=== PATIENT | female | born 1945 | race Caucasian/White ===

== ENCOUNTER 2017-09-07 15:32 | Emergency (ER) | payer OTHER, MEDICARE ==
[2017-09-07 15:42] VITALS: BP 172/76; PULSE 87; TEMP 97.2; BMI 28.1
--- NOTE | 2017-09-07 16:32 | PDOC ---
History of Present Illness - General Chief Complaint: Rash Stated Complaint: EMPLOYEE, ALLERGIC REACTION Time Seen by Provider: 09/07/17 15:57 - History of Present Illness Initial Comments: CHIEF COMPLAINT: adverse reaction to medication HISTORY OF PRESENT ILLNESS: 71 yo F with hx of bipolar disease presents to [facility] with "itching." Patient reports that approximately one month ago, her psychiatrist decreased her Wellbutrin from 450 mg to 150 mg and discontinued her Depakote, then prescribed Lamictal 25 mg. She states that at that time she did not "feel right", and then two weeks ago he increased her dosage to 50 mg bid. Since then she has had intolerable itching and has been scratching herself uncontrollably. PAST MEDICAL HISTORY: Denies past medical history FAMILY HISTORY: Denies SOCIAL HISTORY: Denies tobacco, alcohol, illicit drug use. SURGICAL HISTORY: Denies ALLERGIES: bee, crab REVIEW OF SYSTEMS General/Constitutional: Denies fever or chills. Denies weakness, weight change. HEENT: Denies change in vision. Denies ear pain or discharge. Denies sore throat. Cardiovascular: Denies chest pain or shortness of breath. Respiratory: Denies cough, wheezing, or hemoptysis. Gastrointestinal: Denies nausea, vomiting, diarrhea or constipation. Denies rectal bleeding. Genitourinary: Denies dysuria, frequency, or change in urination. Musculoskeletal: Denies joint or muscle swelling or pain. Denies neck or back pain. Skin: severe itching PHYSICAL EXAM General Appearance: Well-appearing, appropriately dressed. No apparent distress , no intoxication. HEENT: Mucus membranes intact. EOMI, PERRLA, normal ENT inspection, normal voice , TMs normal, pharynx normal. No conjunctival pallor. No photophobia, scleral icterus. Neck: Supple. Trachea midline. No tenderness, rigidity, carotid bruit, stridor , lymphadenopathy, or thyromegaly. Respiratory/Chest: Lungs CTAB. No shortness of breath, chest tenderness, respiratory distress, accessory muscle use. No crackles, rales, rhonchi, stridor , wheezing, dullness Cardiovascular: RRR. S1, S2. No JVD, murmur, bradycardia, tachycardia. Vascular Pulses: Dorsalis-Pedis (R): 2+, Dorsalis-Pedis (L): 2+ Gastrointestinal/Abdominal: Normal bowel sounds. Abdomen soft, non-distended. No tenderness or rebound tenderness. No organomegaly, pulsatile mass, guarding , hernia, hepatomegaly, splenomegaly. Lymphatic: No adenopathy, tenderness. Musculoskeletal/Extremities: Normal inspection. FROM of all extremities, normal capillary refill. Pelvis Stable. No CVA tenderness. No tenderness to extremities, pedal edema, swelling, erythema or deformity. Integumentary: Excoriations from scratch daly to back and b/l upper extremities. No bullous lesions, no skin tenderness. 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 Fully oriented, alert. Appropriate mood/affect. Motor strength 5/5. No appreciable EOM palsy, facial droop or sensory deficit. Past History - Past Medical History Allergies/Adverse Reactions: Allergies No Known Drug Allergies Allergy (Unknown, Verified 09/07/17 15:39) bee Allergy (Severe, Uncoded 09/07/17 15:39) Swelling bee sting CRAB Adverse Reaction (Unknown, Uncoded 09/07/17 15:39) Home Medications: Ambulatory Orders Aspirin Coated [Ecotrin -] 81 mg PO ASDIR 07/04/15 Bupropion HCl [Wellbutrin Xl -] 300 mg PO DAILY 07/04/15 Cephalexin [Keflex] 500 mg PO BID #28 capsule 07/04/15 Duloxetine HCl [Cymbalta] 60 mg PO ASDIR 07/04/15 Levothyroxine [Synthroid -] 88 mcg PO ASDIR 07/04/15 Naproxen [Naprosyn -] 500 mg PO BID PRN #28 tablet 07/04/15 Nebivolol HCl [Bystolic] 5 mg PO DAILY 07/04/15 Divalproex [Depakote -] 125 mg PO HS #10 tablet. 09/07/17 - Reproductive History Hx Endometriosis: No Hx PID: No Hx Polycystic Ovaries: No Hx Ectopic : No Hx Cervical Cancer: No Hx Dysfunctional Uterine Bleeding: No Hx Ovarian Cancer: No Hx Endometrial Cancer: No - Immunization History Immunization Up to Date: Yes Tetanus Status: Less than 5 years - Social History Smoking History: No Smoking Status: Never smoked Number of Cigarettes Per Day: 0 Alcohol Use: occasionally Drug Use: none *Physical Exam - Vital Signs Last Vital Signs Temp Pulse Resp BP Pulse Ox 97.2 F L 87 19 172/76 99 09/07/17 15:39 09/07/17 15:39 09/07/17 15:39 09/07/17 15:39 09/07/17 15:39 Plan - Progress Note Progress Note: 09/07/17 16:32 71 yo F with hx of bipolar disease presents to fast track with "itching." Attempted to call patient's psychiatrist Dr. Zaire Diop of [facility], unable to reach via both hospital office, outpatient office, and cell phone. Discussed case with on-call psych MD Shi, who advises to restart patient on low dose Depakote until patient is able to f/u with her own psychiatrist. *DC/Admit/Observation/Transfer Diagnosis at time of Disposition: Adverse drug reaction Qualifiers: Encounter type: initial encounter Qualified Code(s): T88.7XXA - Unspecified adverse effect of drug or medicament, initial encounter - Discharge Dispostion Disposition: HOME Condition at time of disposition: Stable Admit: No - Prescriptions Prescriptions: Divalproex [Depakote -] 125 mg PO HS #10 tablet.dr - Referrals - Patient Instructions Printed Discharge Instructions: DI for Adverse Drug Reaction -- Other Additional Instructions: Please take medication as prescribed. You MUST follow up with Dr. Diop's office on SATURDAY. If you develop ANY worsening rash, blisters, fever, vomiting , or ANY new or worsening symptoms, you MUST return to the ER immediately. - Post Discharge Activity
== END 2017-09-07 16:50 | disposition home or self-care (01) ==
LOC: JERFT 15:32
DX: T88.7XXA Unspecified adverse effect of drug or medicament, initial encounter (principal)
CPT/HCPCS: 99281-25

== ENCOUNTER 2017-11-07 14:34 | Emergency (ER) | payer OTHER, MEDICARE ==
[2017-11-07 14:40] VITALS: BP 137/88; PULSE 88; TEMP 97.4; BMI 28.5
--- NOTE | 2017-11-07 15:43 | PDOC ---
History of Present Illness - General Chief Complaint: Rash Stated Complaint: RASH History Source: Patient Exam Limitations: No Limitations - History of Present Illness Initial Comments: 11/07/17 16:00 She came with complaints of very itchy swollen rash to her right face, orbit since yesterday. States was gardening and weeding and feels probably was exposed to poison jenna. Denies tongue or lip swelling, denies breathing problems , also has some patches streaking to arms Timing/Duration: reports: getting worse Severity: Yes: moderate Location: reports: extremities, face Respiratory Risk Factors: reports: exposure to allergen (poison jenna ) Modifying Factors: improves with: scratching Associated Symptoms: reports: denies symptoms Past History - Travel Traveled outside of the country in the last 30 days: No Close contact w/someone who was outside of country & ill: No - Past Medical History Allergies/Adverse Reactions: Allergies Allergy/AdvReac Type Severity Reaction Status Date / Time No Known Drug Allergies Allergy Unknown Verified 11/07/17 14:36 bee Allergy Severe Swelling Uncoded 11/07/17 14:36 CRAB AdvReac Unknown Uncoded 11/07/17 14:36 Home Medications: Ambulatory Orders Aspirin Coated [Ecotrin -] 81 mg PO ASDIR 07/04/15 Bupropion HCl [Wellbutrin Xl -] 300 mg PO DAILY 07/04/15 Cephalexin [Keflex] 500 mg PO BID #28 capsule 07/04/15 Duloxetine HCl [Cymbalta] 60 mg PO ASDIR 07/04/15 Levothyroxine [Synthroid -] 88 mcg PO ASDIR 07/04/15 Naproxen [Naprosyn -] 500 mg PO BID PRN #28 tablet 07/04/15 Nebivolol HCl [Bystolic] 5 mg PO DAILY 07/04/15 Divalproex [Depakote -] 125 mg PO HS #10 tablet. 09/07/17 Prednisone 10 mg PO DAILY #43 tab 11/07/17 Cardiac Disorders: Yes (mitral valve prolapse) COPD: No Hypercholesterolemia: Yes Kidney Stones: Yes Psychiatric Problems: Yes (BIPOLAR) Thyroid Disease: Yes (HYPO) - Surgical History Orthopedic Surgery: Yes (right rotator cuff surgery) - Reproductive History Cervical CA: No Dysfunctional Uterine Bleeding: No Ectopic : No Endometrial CA: No Polycystic Ovaries: No Tubal Ligation: No - Immunization History Immunization Up to Date: Yes - Suicide/Smoking/Psychosocial Hx Smoking Status: No Smoking History: Never smoked Have you smoked in the past 12 months: No Number of Cigarettes Smoked Daily: 0 Information on smoking cessation initiated: No Hx Alcohol Use: No Drug/Substance Use Hx: No Substance Use Type: None Hx Substance Use Treatment: No Review of Systems - Review of Systems Able to Perform ROS?: Yes Is the patient limited Tanzanian proficient: Yes Constitutional: Yes: Symptoms Reported, See HPI, Malaise. No: Fever HEENTM: Yes: See HPI. No: Symptoms Reported, Throat Swelling, Difficulty Swallowing Respiratory: Yes: See HPI. No: Symptoms reported, Cough, Wheezing ABD/GI: No: Symptoms Reported Integumentary: Yes: Symptoms Reported All Other Systems: Reviewed and Negative *Physical Exam - Vital Signs Last Vital Signs Temp Pulse Resp BP Pulse Ox 97.4 F L 88 18 137/88 100 11/07/17 14:37 11/07/17 14:37 11/07/17 14:37 11/07/17 14:37 11/07/17 14:37 - Physical Exam General Appearance: Yes: Nourished, Appropriately Dressed, Apparent Distress, Mild Distress HEENT: positive: ANASTASIA, TMs Normal, Pharynx Normal Neck: positive: Supple, Lymphadenopathy (L). negative: Lymphadenopathy (R) Respiratory/Chest: positive: Lungs Clear, Normal Breath Sounds. negative: Wheezing Gastrointestinal/Abdominal: positive: Soft. negative: Tender Musculoskeletal: positive: Normal Inspection Integumentary: positive: Erythema, Rash (erythematous and discolored mildly swollen orbit to right side. 2 lids with a contact dermatitis-type appearance versus eczema. 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 *DC/Admit/Observation/Transfer Diagnosis at time of Disposition: Poison jenna dermatitis - Discharge Dispostion Disposition: HOME Condition at time of disposition: Stable Admit: No - Referrals - Patient Instructions Printed Discharge Instructions: DI for Poison Jenna Allergy Additional Instructions: Rest, keep cool and dry- avoid strenuous activity or hot /humid environments Less hot showers, no abrasive soaps May use heavy creams like Eucerin or Cetaphil to keep skin moist May apply Aveeno, calamine lotion, [id number] hydrocortisone creams as needed for symptoms May use Benadryl at night for antihistamine, Zyrtec/ Yaima or Claritin for daytime antihistamine use to help with itching May use [id number] hydrocortisone cream on all areas except face Try to identify cause for rash and avoid exposures Followup with PMD in one week if no resolution Make appointment with velvet steamer for evaluation when possible - Post Discharge Activity
[2017-11-07] MEDS ORDERED: DEXAMETHASONE SOD PHOSPHATE 10 MG/1 ML VIAL IM ONE (15:59)
[2017-11-07] MEDS ORDERED: DEXAMETHASONE SOD PHOSPHATE 10 MG/1 ML VIAL ONE (16:04)
== END 2017-11-07 16:41 | disposition home or self-care (01) ==
LOC: JERFT 14:34
PROC: 3E023GC Introduction of Other Therapeutic Substance into Muscle, Percutaneous Approach (ICD-10-PCS; principal; 2017-11-07)
DX: L23.7 Allergic contact dermatitis due to plants, except food (principal); E03.9 Hypothyroidism, unspecified; E78.00 Pure hypercholesterolemia, unspecified; F31.9 Bipolar disorder, unspecified
CPT/HCPCS: 99281-25; J1100

== ENCOUNTER 2020-11-28 12:24 | Emergency (ER) | payer OTHER, MEDICARE ==
[2020-11-28 12:39] VITALS: BP 119/71; PULSE 106; TEMP 98.2; BMI 27.4
[2020-11-28] MEDS ORDERED: ACETAMINOPHEN 500 MG TABLET (FP) PO ONE (13:03)
[2020-11-28] MEDS ORDERED: ACETAMINOPHEN 500 MG TABLET (FP) ONE (13:05)
[2020-11-28] MEDS ORDERED: NAPROXEN 500 MG TABLET PO ONE (15:42)
[2020-11-28] MEDS ORDERED: NAPROXEN 500 MG TABLET ONE (15:45)
== END 2020-11-28 15:48 | disposition home or self-care (01) ==
LOC: JERFT 12:24
DX: S80.12XA Contusion of left lower leg, initial encounter (principal); S63.501A Unspecified sprain of right wrist, initial encounter; M79.10 Myalgia, unspecified site
CPT/HCPCS: 73090-TC-RT-FY; 73110-TC-LT-FY; 73110-TC-RT-FY; 73130-TC-LT-FY; 73130-TC-RT-FY; 73590-TC-LT-FY; 99284-25